=== PATIENT | female | born 1955 | race Caucasian/White ===

== ENCOUNTER 2019-09-02 14:51 | Emergency (ER) | payer BC, OTHER ==
[~2019-09-02] VITALS: Ht 154.9 cm; Wt 66.7 kg
[2019-09-02 14:58] VITALS: Ht 154.9 cm; Wt 66.7 kg
[2019-09-02 15:32] LABS: BASOPHIL % 0.1 % (0-2); PLATELET COUNT 168 x10^3mcL (130-400); RED CELL DISTRIBUTION WIDTH 13.4 % (11.5-14.5)
[2019-09-02 15:47] LABS: CALCIUM 9.2 mg/dL (8.5-10.1); CARBON DIOXIDE 24.8 mmol/L (21-32); CHLORIDE SERUM 95 mmol/L (98-107); CREATININE SERUM 0.7 mg/dL (0.6-1.0); GFR1 > 60 mL/min; GLUCOSE SERUM 307 mg/dL (74-106); SODIUM SERUM 131 mmol/L (136-145)
[2019-09-02 15:52] LABS: ALBUMIN 3.6 g/dL (3.4-5.0); ALKALINE PHOSPHATASE 79 U/L (46-116); ALT/SGPT 23 U/L (14-59); AST/SGOT 14 U/L (15-37); BILIRUBIN TOTAL 0.3 mg/dL (0.20-1.00); MAGNESIUM 1.6 mg/dL (1.8-2.4); TOTAL PROTEIN, SERUM 7.2 g/dL (6.4-8.2)
[2019-09-02 15:53] LABS: CHOLESTEROL 229 mg/dL (<200); HDL CHOLESTEROL 74 mg/dL (40-60)
[2019-09-02 15:57] LABS: UA SPECIFIC GRAVITY 1.015 (1.005-1.035); microscopic required? YES; urine erythrocyte 2+ (NEGATIVE)
[2019-09-02 16:00] LABS: T3 TOTAL 0.85 ng/mL
[2019-09-02 16:08] LABS: FREE T4 0.93 ng/dL (0.76-1.46); FREE THYROXINE INDEX 2.2 ug/dL (1.4-4.5); T4(THYROXINE) 7.2 ug/dL (4.7-13.3)
[2019-09-02 19:35] VITALS: BP 139/47
== END 2019-09-02 19:35 | disposition short-term general hospital (02) ==
LOC: ED 14:51
PROVIDERS: Emergency Medicine
DX: R56.9 Unspecified convulsions (principal); R90.0 Intracranial space-occupying lesion found on diagnostic imaging of central nervous system; G93.89 Other specified disorders of brain; I21.3 ST elevation (STEMI) myocardial infarction of unspecified site; E11.65 Type 2 diabetes mellitus with hyperglycemia; E83.42 Hypomagnesemia
CPT/HCPCS: 84439; J1953; J3475; J7030